=== PATIENT | female | born 1955 | race Caucasian/White ===

== ENCOUNTER 2021-01-27 09:16 | Emergency (ER) | payer OTHER ==
[2021-01-27] MEDS ORDERED: MECLIZINE 12.5 MG TABLET PO STA (10:05)
[2021-01-27] MEDS ORDERED: ONDANSETRON ODT 4 MG TABLET TL STA (10:34)
--- NOTE | 2021-01-27 10:34 | ED Physician Documentation ---
History of Present Illness - Stated complaint Stated Complaint: DIZZINESS/NAUSEA - Chief complaint Chief Complaint: Neuro - History obtained from History obtained from: Patient - Additonal information Additional information: 65-year-old woman with history of high blood pressure and vertigo, treated successfully with Duglas maneuver in the past, presents with vertiginous symptoms again today. She states that it has been ongoing for the past week and then was acutely worse this morning when she turned her head to the right. Also with nausea at that time, prompting her to come into the emergency department. Review of Systems Constitutional: denies: Fever Ears: reports: Other (vertigo, ear fullness BL, worse on R) Nose: reports: Congestion Neurologic: reports: Other. denies: Focal weakness, Numbness, Difficulty speaking, Syncope, Altered mental status, Headache, Head injury PD PAST MEDICAL HISTORY - Past Medical History Past Medical History: Yes Cardiovascular: Hypertension Other Past Medical History: PCOS - Past Surgical History Past Surgical History: Yes Ortho: Shoulder arthroplasty - Present Medications Home Medications: Ambulatory Orders Medication Instructions Recorded Confirmed Meclizine [Antivert] 25 mg PO Q6H PRN #30 tablet 01/27/21 Ondansetron Odt [Zofran Odt] 4 mg TL Q6H PRN #10 tablet 01/27/21 - Allergies Allergies/Adverse Reactions: Allergies Allergy/AdvReac Type Severity Reaction Status Date / Time cephalexin [From Keflex] Allergy Unknown Verified 01/27/21 09:24 - Social History Does the pt smoke?: No Smoking Status: Never smoker Does the pt drink ETOH?: Yes ETOH Use: Liquor Does the pt have substance abuse?: No - Immunizations Immunizations are current?: Yes PD ED PE NORMAL - Vitals Vital signs reviewed: Yes - General General: Alert and oriented X 3, No acute distress, Well developed/nourished - HEENT HEENT: Atraumatic, PERRL, EOMI, Ears normal, Moist mucous membranes, Other (Vertigo elicited by turning head rapidly to the right) - Neck Neck: Supple, no meningeal sign - Cardiac Cardiac: RRR - Respiratory Respiratory: No respiratory distress, Clear bilaterally - Abdomen Abdomen: Non tender, Non distended - Derm Derm: Normal color, Warm and dry - Extremities Extremities: No deformity - Neuro Neuro: Alert and oriented X 3, therapeutic specialist 2-12 intact, No motor deficit, No sensory deficit, Normal speech, Other (Cerebellar testing, gait, and strength within normal limits) - Psych Psych: Normal mood, Normal affect Results - Vitals Vitals: Vital Signs - 24 hr 01/27/21 01/27/21 01/27/21 09:19 10:28 11:13 Temperature 36.3 C L 36.5 C Heart Rate 97 97 63 Respiratory 20 17 16 Rate Blood Pressure 148/85 H 106/83 H 135/96 H O2 Saturation 97 94 98 Oxygen O2 Source Room air Procedures - General procedure General procedure: Duglas maneuver performed on the right side. Patient had some relief of symptoms with this. Patient tolerated well PD MEDICAL DECISION MAKING - ED course ED course: 5-year-old woman presents with vertigo without any warning signs for neurologic symptoms, improved with duglas and meclizine. No neuro deficits. Strict return precautions given. Patient will follow up with her primary doctor and with ENT for Departure - Departure Disposition: 01 Home, Self Care Clinical Impression: Vertigo Condition: Good Instructions: Dizziness Vertigo Balance Safety, ED Vertigo Unspecified Follow-Up: ESHA SMITH MD [Physician No Access] - Prescriptions: Meclizine [Antivert] 25 mg PO Q6H PRN #30 tablet PRN Reason: Vertigo Ondansetron Odt [Zofran Odt] 4 mg TL Q6H PRN #10 tablet PRN Reason: Nausea / Vomiting Comments: You are seen in the emergency department for vertigo. I am glad that you are feeling better! Please return to the emergency department if you have any new or worsening symptoms or other concerns. Follow-up with your primary doctor for referral to ear nose and throat. Discharge Date/Time: 01/27/21 11:15
[2021-01-27 11:14] VITALS: BP 135/96
== END 2021-01-27 11:15 | disposition home or self-care (01) ==
LOC: ED 09:16
DX: R42 Dizziness and giddiness (principal); I10 Essential (primary) hypertension
CPT/HCPCS: 93005; 99283; A9270; Q0162